=== PATIENT | female | born 1960 | race Caucasian/White ===

== ENCOUNTER 2024-03-01 14:08 | Emergency (ER) | payer OTHER ==
[~2024-03-01] VITALS: Ht 162.5 cm; Wt 103.4 kg
== END 2024-03-01 15:15 | disposition home or self-care (01) ==
LOC: ED 14:08
DX: T82.598A Other mechanical complication of other cardiac and vascular devices and implants, initial encounter (principal); Z88.6 Allergy status to analgesic agent; Z88.5 Allergy status to narcotic agent; Z88.1 Allergy status to other antibiotic agents; Z88.8 Allergy status to other drugs, medicaments and biological substances; Y71.8 Miscellaneous cardiovascular devices associated with adverse incidents, not elsewhere classified; Y92.89 Other specified places as the place of occurrence of the external cause